=== PATIENT | male | born 1960 | race Caucasian/White ===

== ENCOUNTER → 2018-05-08 | Outpatient (CLI) | payer BC ==
--- NOTE | 2018-05-08 12:40 | CT ---
EXAMINATION TYPE: CT soft tissue neck w con DATE OF EXAM: 05/08/2018 HISTORY: Pt. Complaining of throat discomfort after eating popcorn, also feels discomfort in upper ch est region. COMPARISON: NONE CT DLP: 670 mGycm. Automated Exposure Control for Dose Reduction was Utilized. TECHNIQUE: CT scan of the neck is performed with IV Contrast, patient injected with 100 mL of Isovue 300, axial images are obtained, coronal and sagittal reformatted images are reviewed. FINDINGS: Airway: Nasopharyngeal and oropharyngeal airways are felt within normal limits. Regional epiglottis a nd vallecula appears unremarkable. Pharyngeal airway into proximal trachea is within normal limits. T hyroid gland is normal in size. Mild biapical pleural/parenchymal scarring is seen. Parotid/submandibular glands: No gross abnormality seen. Carotid/Vascular Structures: Mild to minimal calcified plaque at bilateral carotid bulbs is present. No significant stenosis is seen. Osseous Structures: There is moderate to advanced disc space narrowing with mild spurring C5-C6 and C 6-C7 levels. Posterior disc herniations at these levels are effacing anterior thecal sac and contribu ting to bilateral moderate to severe neural foraminal narrowing along with marginal spurring on axial images. Other: Prominent but subcentimeter lymph nodes throughout the neck are present bilaterally. There is minimally enlarged right submandibular lymph node measuring 1.3 x 1.0 cm axial image 35. IMPRESSION: Minimally enlarged right submandibular lymph node. Airway patent without obvious mass or foreign body. Results communicated to ordering physician office via telephone at time of dictation.
== END | disposition home or self-care (01) ==
LOC: RADCTMAIN 11:32
PROVIDERS: ATTEND Otolaryngology
DX: R07.0 Pain in throat (principal)
CPT/HCPCS: 70491; Q9967

== ENCOUNTER 2023-08-24 05:40 | Day surgery (SDC) | payer BC ==
[2023-08-18 11:19] VITALS: BMI 22.4
--- NOTE | 2023-08-23 10:20 | P.HPOR ---
History of Present Illness H&P Date: 08/23/23 Subjective: This is a 62 year old male that presents today for initial evaluation regarding a 20 year history of progressively worsening left and right hand paresthesias in the thumb, index, middle and ring fingers. The patient has tried bracing with little relief. He states the numbness has been constant now for over a year on both sides and the left side is worse. The patient denies any inciting event or neck pain. Physical Examination: LUE: AIN/PIN/Radial/Ulnar/Median motor intact. Radial/Ulnar/Median SILT. 2+/4 Radial/Ulnar pulses palpated. 5/5 APB, 5/5 FDI. Negative Finkelsteins, negative CMC grind, positive Durkan's compression. LUE: AIN/PIN/Radial/Ulnar/Median motor intact. Radial/Ulnar/Median SILT. 2+/4 Radial/Ulnar pulses palpated. 5/5 APB, 5/5 FDI. Negative Finkelsteins, negative CMC grind, positive Durkan's compression. EMG/NCV: EMG/NCV performed on 05/03/23 demonstrates severe left carpal tunnel syndrome, moderate right carpal tunnel syndrome. Impression: 1.) Left carpal tunnel syndrome 2.) Right carpal tunnel syndrome Plan: Diagnosis and treatment options were discussed with the patient. The patient has failed conservative treatment and would like to pursue a left endoscopic vs open carpal tunnel release. Risks and benefits of surgery including bleeding, infection, damage to surrounding tissue, need for further surgery, possible need to convert to open procedure, residual numbness were discussed and the patient wished to go forward with surgery. I anticipate 2 weeks off work per side, this can be extended if needed at first post op appointment. CC: Dr. Jean-Pierre Samaniego DO Orthopedic Hand/Upper Extremity Surgeon Past Medical History Past Medical History: Diabetes Mellitus, Hyperlipidemia History of Any Multi-Drug Resistant Organisms: None Reported Additional Past Surgical History / Comment(s): dental implants Past Anesthesia/Blood Transfusion Reactions: No Reported Reaction Past Psychological History: No Psychological Hx Reported Smoking Status: Current every day smoker Past Alcohol Use History: Daily Additional Past Alcohol Use History / Comment(s): "couple beers a day" Past Drug Use History: Marijuana Additional Drug Use History / Comment(s): instructed to refrain from use 24 hrs prior to anesth. - Past Family History Father Family Medical History: Cancer Additional Family Medical History / Comment(s): colon Medications and Allergies Home Medications Medication Instructions Recorded Confirmed Type Atorvastatin [Lipitor] 20 mg PO DAILY 08/18/23 08/18/23 History Pioglitazone [Actos] 15 mg PO DAILY 08/18/23 08/18/23 History metFORMIN HCL 1,000 mg PO DAILY 08/18/23 08/18/23 History Allergies Allergy/AdvReac Type Severity Reaction Status Date / Time No Known Allergies Allergy Verified 08/18/23 10:43 Physical Examination Osteopathic Statement: *. No significant issues noted on an osteopathic structural exam other than those noted in the History and Physical/Consult.
[~2023-08-24 05:40] MED LIST: Pre Op ABX Message 1 EACH MISC MISCELLANE ONE
[2023-08-24] MEDS ORDERED: ONDANSETRON 4 MG/2 ML VIAL IVP ONE (06:30)
[2023-08-24] MEDS ORDERED: LACTATED RINGERS 1,000 ML IV SCH (06:30)
[2023-08-24] MEDS ORDERED: HYDROmorphone 0.5 MG/0.5 ML SYRINGE IVP PRN (07:00)
[2023-08-24] MEDS ORDERED: DEXAMETHASONE SOD PHOSPHATE 4 MG/ML 1 ML VIAL IVP ONE (07:01)
[2023-08-24 07:06] VITALS: RESP 16; TEMP 97.6
[2023-08-24 07:10] LABS: Glucose,Whole Blood 117 mg/dL (70-110)
[2023-08-24] MEDS ORDERED: fentaNYL (PF) 50 MCG/ML 2 ML AMP ONE (07:26)
[2023-08-24] MEDS ORDERED: KETAMINE HCL IN 0.9 % NACL 50 MG/5 ML SYRINGE ONE (07:26)
[2023-08-24] MEDS ORDERED: MIDAZOLAM 2 MG/2 ML VIAL ONE (07:26)
[2023-08-24] MEDS ORDERED: PROPOFOL 10 MG/ML 20 ML VIAL IV ONE (07:26)
[2023-08-24] MEDS ORDERED: LIDOCAINE 2% INJ 20 MG/ML SQ ONE (07:30)
[2023-08-24] MEDS ORDERED: BUPIVACAINE (PF) 0.5% 30 ML VIAL SQ ONE (07:30)
--- NOTE | 2023-08-24 07:54 | P.OP ---
Date of Procedure: 08/24/23 Preoperative Diagnosis: Left carpal tunnel syndrome Postoperative Diagnosis: Left carpal tunnel syndrome Procedure(s) Performed: Left endoscopic carpal tunnel release Anesthesia: MAC Surgeon: Aj Samaniego Information Technology Advisor #1: Toni Aguilar Estimated Blood Loss (ml): 0 Pathology: none sent Condition: stable Disposition: PACU Description of Procedure: This is a 63 year old male who presents today for a left endoscopic carpal tunnel release after having failed conservative treatment in the past. Risks and benefits of surgery were discussed with the patient including bleeding, damage to surrounding tissue, infection, need to convert to open procedure, need for further surgery as well as risks of anesthesia including pulmonary embolism and even and the patient wished to proceed with surgical intervention. The patients was seen in the pre-operative area by myself. Consent and H&P were completed and updated. The correct extremity was marked in the pre-operative area by myself and all other questions were answered. Operative Narrative: The patient was brought to the operating room by the department of anesthesia. They remained on the portable stretcher and a rolling hand table was brought to the side of the operative extremity. Pre-operative time out was performed indicating the correct patient, procedure and laterality. All in the room agreed. The patient was then drifted off to sleep by the department of anesthesia. MAC anesthesia was utilized and a 50:50 mixture of 1% Lidocaine and 0.5% bupivacaine was injected into the subcutaneous tissues of the palmar skin, 8ccs total. A nonsterile tourniquet was then applied to the operative extremity and the left upper extremity was then prepped and draped in normal sterile fashion. The operative extremity was the exsanguinated with an esmarch bandage and the tourniquet was inflated to 250mmHg. 15 blade scalpel was utilized to make a transverse incision on the palmar skin just ulnar to the palmaris longus tendon at the level of the distal wrist crease. Ragnell retractor was then placed radially and blunt dissection was performed to reveal the distal forearm fascia. This was lifted with fine Kole pick ups and Littler tenotomy scissors were then used to open the forearm fascia transversely and a double skin hook was then placed. Hamate finder was placed into the carpal tunnel and then sequential sized dilators were inserted followed by the synovial elevator to separate the flexor tenosynovium from the undersurface of the transverse carpal ligament and a washboard texture was felt. The MicroAire endoscopic carpal tunnel release system gun was the then inserted into the carpal tunnel hugging the deep portion of the transverse carpal ligament in line with the base of the ring finger. Transverse fibers of the ligament were directly visualized. Pressure was applied on the palm to reveal the distal extent of the transverse carpal ligament. The blade was then deployed and the distal half of the transverse carpal ligament was released. The scope was then brought distal again and remaining transverse fibers were incised with the blade. The proximal half of the transverse carpal ligament was then divided and again the scope was advanced distal and remaining transverse fibers were incised with the blade. The radial and ulnar leaflets were directly visualized and mobile consistent with complete release. Tenotomy scissors were then utilized to release the remaining distal forearm fascia under direct visualization taking care to preserve the palmar cutaneous branch of the median nerve. Skin closure was performed with interrupted 4-0 Monocryl suture followed by steri strips. Sterile dressing was applied consisting 4x4s, Webril, and an haleigh bandage. Tourniquet was let down and the hand immediately was well perfused. The patient was then woken by the department of anesthesia and transferred to PACU in stable condition. Toni CHAMPION was present for the case in its entirety and assisted in major portions of the case and protection of vital neurovascular structures. Aj Samaniego D.O. Orthopedic Hand/Upper Extremity Surgeon
[2023-08-24 08:01] LABS: Glucose,Whole Blood 126 mg/dL (70-110)
[2023-08-24 08:33] VITALS: BP 122/80; PULSE 55
== END 2023-08-24 08:30 | disposition home or self-care (01) ==
LOC: OR 05:40
PROVIDERS: ATTEND Orthopaedic Surgery Hand Surgery
DX: G56.02 Carpal tunnel syndrome, left upper limb (principal); E78.5 Hyperlipidemia, unspecified; E11.9 Type 2 diabetes mellitus without complications; I10 Essential (primary) hypertension; F17.200 Nicotine dependence, unspecified, uncomplicated; F12.90 Cannabis use, unspecified, uncomplicated; F10.90 Alcohol use, unspecified, uncomplicated; Z80.0 Family history of malignant neoplasm of digestive organs; Z79.84 Long term (current) use of oral hypoglycemic drugs; Z79.899 Other long term (current) drug therapy
CPT/HCPCS: 29848; J2001; J2250; J1100; J2405; J3010; J2704; J0665

== ENCOUNTER 2023-09-14 06:48 | Day surgery (SDC) | payer BC ==
[2023-09-09 13:33] VITALS: BMI 22.1
--- NOTE | 2023-09-13 17:26 | P.HPOR ---
History of Present Illness H&P Date: 09/13/23 Subjective: This is a 62 year old male that presents today for initial evaluation regarding a 20 year history of progressively worsening right hand paresthesias in the thumb, index, middle and ring fingers. The patient has tried bracing with little relief. He states the numbness has been constant now for over a year. The patient denies any inciting event or neck pain. Physical Examination: RUE: AIN/PIN/Radial/Ulnar/Median motor intact. Radial/Ulnar/Median SILT. 2+/4 Radial/Ulnar pulses palpated. 5/5 APB, 5/5 FDI. Negative Finkelsteins, negative CMC grind, positive Durkan's compression. EMG/NCV: EMG/NCV performed on 05/03/23 demonstrates severe left carpal tunnel syndrome, moderate right carpal tunnel syndrome. Impression: 1.) Left carpal tunnel syndrome s/p endoscopic carpal tunnel release 2.) Right carpal tunnel syndrome Plan: Diagnosis and treatment options were discussed with the patient. The patient has failed conservative treatment and would like to pursue a right endoscopic vs open carpal tunnel release. Risks and benefits of surgery including bleeding, infection, damage to surrounding tissue, need for further surgery, possible need to convert to open procedure, residual numbness were discussed and the patient wished to go forward with surgery. I anticipate 2 weeks off work per side, this can be extended if needed at first post op appointment. CC: Dr. Jean-Pierre Samaniego DO Orthopedic Hand/Upper Extremity Surgeon Past Medical History Past Medical History: Diabetes Mellitus, Hyperlipidemia History of Any Multi-Drug Resistant Organisms: None Reported Additional Past Surgical History / Comment(s): Carpal Tunnel L wrist, dental implants. Past Anesthesia/Blood Transfusion Reactions: No Reported Reaction Past Psychological History: No Psychological Hx Reported Smoking Status: Current some day smoker Past Alcohol Use History: Occasional Additional Past Alcohol Use History / Comment(s): Smokes cigars occas. Past Drug Use History: None Reported - Past Family History Mother Family Medical History: No Reported History Father Family Medical History: Cancer Additional Family Medical History / Comment(s): Colon Medications and Allergies Home Medications Medication Instructions Recorded Confirmed Type Atorvastatin [Lipitor] 20 mg PO DAILY 08/18/23 09/09/23 History Pioglitazone [Actos] 15 mg PO DAILY 08/18/23 09/09/23 History metFORMIN HCL 1,000 mg PO DAILY 08/18/23 09/09/23 History Folic Acid 1 tab PO DAILY 08/24/23 09/09/23 History Gabapentin [Neurontin] 100 mg PO DAILY 08/24/23 09/09/23 History Allergies Allergy/AdvReac Type Severity Reaction Status Date / Time No Known Allergies Allergy Verified 09/09/23 13:23 Physical Examination Osteopathic Statement: *. No significant issues noted on an osteopathic structural exam other than those noted in the History and Physical/Consult.
[~2023-09-14 06:48] MED LIST changes: +HYDROmorphone 0.5 MG/0.5 ML SYRINGE IVP PRN; +LIDOCAINE 1% (10MG/ML) FOR IV START INTRADERMA PRN; +MIDAZOLAM 2 MG/2 ML VIAL IV PRN
[2023-09-14 07:46] LABS: Glucose,Whole Blood 132 mg/dL (70-110)
[2023-09-14 07:48] VITALS: RESP 16; TEMP 96.8
[2023-09-14] MEDS: DEXAMETHASONE SOD PHOSPHATE 4 MG/ML 1 ML VIAL IV ONE (07:54)
[2023-09-14] MEDS: LACTATED RINGERS 1,000 ML IV SCH (07:54)
[2023-09-14] MEDS: ONDANSETRON 4 MG/2 ML VIAL IVP ONE (07:54)
[2023-09-14] MEDS ORDERED: LIDOCAINE 1% INJ 10MG/ML (20 ML MDV) ONE ×2 (08:25)
[2023-09-14] MEDS ORDERED: MIDAZOLAM 2 MG/2 ML VIAL ONE (08:25)
[2023-09-14] MEDS ORDERED: fentaNYL (PF) 50 MCG/ML 2 ML AMP ONE (08:25)
[2023-09-14] MEDS: BUPIVACAINE (PF) 0.5% 30 ML VIAL SQ ONE ×2 (08:42)
--- NOTE | 2023-09-14 08:46 | P.OP ---
Date of Procedure: 09/14/23 Preoperative Diagnosis: Right carpal tunnel syndrome Postoperative Diagnosis: Right carpal tunnel syndrome Procedure(s) Performed: Right endoscopic carpal tunnel release Anesthesia: MAC Surgeon: Aj Samaniego Research Subject #1: Toni Aguilar Estimated Blood Loss (ml): 0 Pathology: none sent Condition: stable Disposition: PACU Description of Procedure: This is a 63 year old male who presents today for a right endoscopic carpal tunnel release after having failed conservative treatment in the past. Risks and benefits of surgery were discussed with the patient including bleeding, damage to surrounding tissue, infection, need to convert to open procedure, need for further surgery as well as risks of anesthesia including pulmonary embolism and even and the patient wished to proceed with surgical intervention. The patients was seen in the pre-operative area by myself. Consent and H&P were completed and updated. The correct extremity was marked in the pre-operative area by myself and all other questions were answered. Operative Narrative: The patient was brought to the operating room by the department of anesthesia. They remained on the portable stretcher and a rolling hand table was brought to the side of the operative extremity. Pre-operative time out was performed indicating the correct patient, procedure and laterality. All in the room agreed. The patient was then drifted off to sleep by the department of anes thesia. MAC anesthesia was utilized and a 50:50 mixture of 1% Lidocaine and 0.5% bupivacaine was injected into the subcutaneous tissues of the palmar skin, 8ccs total. A nonsterile tourniquet was then applied to the operative extremity and the right upper extremity was then prepped and draped in normal sterile fashion. The operative extremity was the exsanguinated with an esmarch bandage and the tourniquet was inflated to 250mmHg. 15 blade scalpel was utilized to make a transverse incision on the palmar skin just ulnar to the palmaris longus tendon at the level of the distal wrist crease. Ragnell retractor was then placed radially and blunt dissection was performed to reveal the distal forearm fascia. This was lifted with fine Kole pick ups and Littler tenotomy scissors were then used to open the forearm fascia transversely and a double skin hook was then placed. Hamate finder was placed into the carpal tunnel and then sequential sized dilators were inserted followed by the synovial elevator to separate the flexor tenosynovium from the undersurface of the transverse carpal ligament and a washboard texture was felt. The MicroAire endoscopic carpal tunnel release system gun was the then inserted into the carpal tunnel hugging the deep portion of the transverse carpal ligament in line with the base of the ring finger. Transverse fibers of the ligament were directly visualized. Pressure was applied on the palm to reveal the distal extent of the transverse carpal ligament. The blade was then deployed and the distal half of the transverse carpal ligament was released. The scope was then brought distal again and remaining transverse fibers were incised with the blade. The proximal half of the transverse carpal ligament was then divided and again the scope was advanced distal and remaining transverse fibers were incised with the blade. The radial and ulnar leaflets were directly visualized and mobile consistent with complete release. Tenotomy scissors were then util ized to release the remaining distal forearm fascia under direct visualization taking care to preserve the palmar cutaneous branch of the median nerve. Skin closure was performed with interrupted 4-0 Monocryl suture followed by steri strips. Sterile dressing was applied consisting 4x4s, Webril, and an haleigh bandage. Tourniquet was let down and the hand immediately was well perfused. The patient was then woken by the department of anesthesia and transferred to PACU in stable condition. Toni CHAMPION was present for the case in its entirety and assisted in major portions of the case and protection of vital neurovascular structures. Aj Samaniego D.O. Orthopedic Hand/Upper Extremity Surgeon
[2023-09-14] MEDS: LIDOCAINE 1% INJ 10MG/ML (20 ML MDV) SQ ONE (08:49)
[2023-09-14 09:17] LABS: Glucose,Whole Blood 129 mg/dL (70-110)
[2023-09-14 09:30] VITALS: BP 144/83; PULSE 68
== END 2023-09-14 09:33 | disposition home or self-care (01) ==
LOC: OR 06:48
PROVIDERS: ATTEND Orthopaedic Surgery Hand Surgery
DX: G56.01 Carpal tunnel syndrome, right upper limb (principal); I10 Essential (primary) hypertension; E11.9 Type 2 diabetes mellitus without complications; F10.90 Alcohol use, unspecified, uncomplicated; F17.210 Nicotine dependence, cigarettes, uncomplicated; Z80.0 Family history of malignant neoplasm of digestive organs; Z79.84 Long term (current) use of oral hypoglycemic drugs
CPT/HCPCS: 29848; J2250; J1100; J2405; J2001; J3010; J0665